=== PATIENT | female | born 1990 | race Caucasian/White ===

== ENCOUNTER 2017-02-10 18:32 | Emergency (ER) | payer MEDICAID, OTHER ==
[~2017-02-10] VITALS: Ht 157.5 cm; Wt 68.5 kg
[2017-02-10 18:35] VITALS: Ht 157.5 cm; Wt 68.5 kg
[2017-02-10] MEDS ORDERED: ONDANSETRON 4 MG INJ IV STA (18:51)
[2017-02-10] MEDS ORDERED: morphine 4 MG/ML VIAL IV STA (18:51)
[2017-02-10] MEDS ORDERED: SOD CHLORIDE 0.9% 1,000 ML IV ONE (19:00)
--- NOTE | 2017-02-10 19:07 | ERD ---
ER Documentation Chief Complaint Date/Time DATE: 02/10/17 TIME: 19:03 Chief Complaint MID ABDOMINAL PAIN, ON HER PERIOD, FEVERS, CHILLS HPI 26-year-old female sent to emergency department for complaints of left lower quadrant abdominal pain, left lower pelvic pain started today. Patient describes the pain as sharp pain, 8/10 scale, is worse upon touching the area. Patient started her menstruation today. Patient denies being . Patient' s last menstruation 01/11/2017. She denies any nausea vomiting fever or chills. Patient denies hematuria or dysuria. ROS All systems reviewed and are negative except as per history of present illness. Medications Home Meds Active Scripts Ibuprofen* (Motrin*) 600 Mg Tab, 600 MG PO Q6H Y for PAIN AND OR ELEVATED TEMP, #30 TAB Prov:KOLE JOHNSON NP 02/10/17 Ciprofloxacin Hcl* (Ciprofloxacin Hcl*) 500 Mg Tablet, 500 MG PO BID for 10 Days , TAB Prov:KOLE JOHNSON NP 02/10/17 Hydrocodone/Acetaminophen ([place] 5-325 Tablet) 1 Each Tablet, 1 TAB PO Q6H Y for SEVERE PAIN LEVEL 7-10, #20 TAB Prov:KOLE JOHNSON NP 02/10/17 Phenazopyridine Hcl* (Pyridium*) 200 Mg Tab, 200 MG PO TID Y for URINARY PAIN, # 6 TAB Prov:KOLE JOHNSON NP 02/10/17 Reported Medications [none] Unknown Strength No Conflict Check 02/10/17 Allergies Allergies: Coded Allergies: No Known Allergy (Unverified , 02/10/17) PMhx/Soc Medical and Surgical Hx: pt denies Medical Hx, pt denies Surgical Hx History of Surgery: No Anesthesia Reaction: No Hx Neurological Disorder: No Hx Respiratory Disorders: No Hx Cardiac Disorders: No Hx Psychiatric Problems: No Hx Miscellaneous Medical Probl: No Hx Alcohol Use: No Hx Substance Use: No Smoking Status: Never smoker FmHx Family History: No coronary disease, No diabetes, No other Physical Exam Vitals Vital Signs Date Time Temp Pulse Resp B/P Pulse Ox O2 Delivery O2 Flow Rate FiO2 02/10/17 18:35 98.2 90 18 136/74 100 Physical Exam GENERAL: The patient is well developed and appropriate for usual state of health, in no apparent distress. CHEST: Clear to auscultation bilaterally. There are no rales, wheezes or rhonchi. HEART: Regular rate and rhythm. No murmurs, clicks, rubs or gallops. No S3 or S4. ABDOMEN: Soft, nontender and nondistended. Good bowel sounds. No rebound or guarding. No gross peritonitis. No gross organomegaly or masses. No Masterson sign or McBurney point tenderness. BACK: No midline or flank tenderness. EXTREMITIES: Equal pulses bilaterally. There is no peripheral clubbing, cyanosis or edema. No focal swelling or erythema. Full range of motion. Grossly neurovascularly intact. NEURO: Alert and oriented. Cranial nerves 2-12 intact. Motor strength in all 4 extremities with 5/5 strength. Sensation grossly intact. Normal speech and gait. SKIN: There is no apparent rash or petechia. The skin is warm and dry. HEMATOLOGIC AND LYMPHATIC: There is no evidence of excessive bruising or lymphedema. No gross cervical, axillary, or inguinal lymphadenopathy. Result Diagram: 02/10/17189902/10/171899 Results 24 hrs Laboratory Tests Test 02/10/17 18:55 02/10/17 19:00 Urine Color YELLOW Urine Clarity CLOUDY Urine pH 9.0 Urine Specific [place] 1.026 Urine Ketones 2+mg/dL Urine Nitrite NEGATIVEmg/dL Urine Bilirubin NEGATIVEmg/dL Urine Urobilinogen NEGATIVEmg/dL Urine Leukocyte Esterase 1+Adrian/ul Urine Microscopic RBC > 182/HPF Urine Microscopic WBC 16/HPF Urine Squamous Epithelial Cells FEW/HPF Urine Amorphous Crystals FEW/HPF Urine Mucus FEW/HPF Urine Hemoglobin 2+mg/dL Urine Glucose NEGATIVEmg/dL Urine Total Protein 2+mg/dl White Blood Count 15.010^3/ul Red Blood Count 4.9110^6/ul Hemoglobin 14.4g/dl Hematocrit 42.0% Mean Corpuscular Volume 85.5fl Mean Corpuscular Hemoglobin 29.3pg Mean Corpuscular Hemoglobin Concent 34.3g/dl Red Cell Distribution Width 12.9% Platelet Count 76405^3/UL Mean Platelet Volume 9.7fl Neutrophils % 89.3% Lymphocytes % 6.0% Monocytes % 4.0% Eosinophils % 0.1% Basophils % 0.2% Nucleated Red Blood Cells % 0.0/100WBC Neutrophils # 13.410^3/ul Lymphocytes # 0.910^3/ul Monocytes # 0.610^3/ul Eosinophils # 0.010^3/ul Basophils # 0.010^3/ul Nucleated Red Blood Cells # 0.010^3/ul Sodium Level 143mmol/L Potassium Level 3.2mmol/L Chloride Level 102mmol/L Carbon Dioxide Level 22mmol/L Anion Gap 22 Blood Urea Nitrogen 15mg/dl Creatinine 0.59mg/dl Glucose Level 106mg/dl Calcium Level 10.4mg/dl Total Bilirubin 0.6mg/dl Direct Bilirubin 0.00mg/dl Indirect Bilirubin 0.6mg/dl Aspartate Amino Transf (AST/SGOT) 25IU/L Alanine Aminotransferase (ALT/SGPT) 33IU/L Alkaline Phosphatase 92IU/L Total Protein 8.4g/dl Albumin 5.1g/dl Globulin 3.30g/dl Albumin/Globulin Ratio 1.54 Lipase 84U/L Current Medications Medications (Trade) Dose Ordered Sig/Barbara Route PRN Reason Start Time Stop Time Status Last Admin Dose Admin Morphine Sulfate (morphine) 4 mg ONCE STAT IV 02/10/17 18:51 02/10/17 18:52 DC 02/10/17 19:11 Ondansetron HCl 4 mg 4 mg ONCE STAT IV 02/10/17 18:51 02/10/17 18:52 DC 02/10/17 19:11 Sodium Chloride (NS) 1,000 ml @ 1,000 mls/hr Q1H ONCE IV 02/10/17 19:00 02/10/17 19:59 DC 02/10/17 19:11 IV Flush 10 ml 10 ml STK-MED ONCE .ROUTE 02/10/17 20:14 02/10/17 20:15 DC 02/10/17 20:33 Sodium Chloride (NS) 100 ml @ ud STK-MED ONCE .ROUTE 02/10/17 20:14 02/10/17 20:15 DC 02/10/17 20:34 Iohexol 150 ml 150 ml STK-MED ONCE .ROUTE 02/10/17 20:14 02/10/17 20:15 DC 02/10/17 20:34 Ceftriaxone Sodium (Rocephin) 50 ml @ 100 mls/hr ONCE ONCE IVPB 02/10/17 21:30 02/10/17 21:59 UNV Patient was given medication for pain here in emergency department, after treatment, patient verbalized feeling much better. Patient's pain is improved.Patient was given Zofran here in the emergency department. After treatment, patient was able to tolerate po fluids here in the emergency department without any vomiting. There is no signs and symptoms of dehydration. Normal saline IV bolus was given here in emergency department for rehydration, patient tolerated IV fluids. Rocephin given here in emergency department. Tolerated medication well. PROCEDURE: Pelvic ultrasound. CLINICAL INDICATION: Pelvic pain TECHNIQUE: Cowart scale, color doppler, spectral doppler ultrasound of the pelvis was performed with transabdominal transducers. COMPARISON: No prior studies are available for comparison. FINDINGS: Uterus: Position: Anteverted. Normal myometrial echogenicity. Normal appearance of the endometrium. Ovaries: Normal sized ovaries with preserved blood flow. No adnexal masses. Free fluid: None. Measurements: Endometrium: 0.7 cm Uterus: 6.9 x 4.0 x 5.3 cm Right ovary: 3.0 x 2.6 x 2.6 cm Left ovary: 2.2 x 1.4 x 2.2 cm IMPRESSION: Normal examination. RPTAT: AADD .Jt Bueno MD, MD Date Time Electronically viewed and signed by .Jt Bueno MD, MD on 02/10/2017 20:16 .B/ CC: KOLE JOHNSON NP PROCEDURE: CT Abdomen and Pelvis with contrast. CLINICAL INDICATION: Abdominal pain. TECHNIQUE: CT scan of the abdomen and pelvis with contrast was performed on a multi-detector high-resolution CT scanner. The patient was scanned following the uncomplicated intravenous administration of 100 cc of Omnipaque 300. Coronal and sagittal reformatted images were obtained from the axial source images. Images were reviewed on a high-resolution PACS workstation. The total exam CTDI equals 7.6 mGy and the total exam DLP equals 410.17 mGy-cm. One or more of the following dose reduction techniques were used: Automated exposure control. Adjustment of the mA and/or kV according to patient size. Use of iterative reconstruction technique. COMPARISON: None. FINDINGS: CT abdomen: The lung bases are clear. The heart size is normal, without pericardial thickening or effusion. The liver is normal in size and density without focal mass or intrahepatic biliary dilatation. The spleen is normal in size and homogeneous in density. The stomach is partially collapsed, but is grossly unremarkable. The pancreas as visualized is normal. The gallbladder is unremarkable. There is no evidence for biliary dilatation. The adrenal glands are symmetric and normal. The kidneys are symmetrically unremarkable as well. No renal calculus or obstructive uropathy or mass lesion is seen. The aorta is of normal caliber. There is no retroperitoneal lymphadenopathy. The rissa hepatis region is clear. The bowel and mesentery, as visualized, are equally unremarkable. CT pelvis: The small bowel loops situated within the pelvis are unremarkable. The pelvic organs are normal. The pelvic sidewalls and inguinal regions are clear. The sigmoid colon and rectum are unremarkable. No mass, lymphadenopathy, or free fluid is seen. No acute inflammation is seen. The bladder is normal. The surrounding osseous structures are unremarkable. No osteolytic or osteoblastic lesion is detected. IMPRESSION: 1. No mass, lymphadenopathy, or focal acute inflammatory process is identified. 2. The appendix is not definitively visualized; however no pericecal inflammatory changes are seen to suggest appendicitis. RPTAT: HHO .Zhao Anna MD, MD Date Time Electronically viewed and signed by .Zhao Anna MD, on 02/10/2017 20:52 .O/ CC: KOLE JOHNSON NP Procedures/MDM Medical Decision Making: Patient symptoms is likely consistent with urinary tract infection, possible early pyelonephritis. No diverticulitis, no symptoms of ovarian torsion. No appendicitis noted. There is low suspicion for abdominal emergencies at this time. Patients abdominal exam is normal at this time. Patients radiology exam does not show any abdominal emergencies at this time. There is low suspicion for appendicitis, cholecystitis, abdominal aortic aneurysms or peritonitis at this time. There is low suspicion for sepsis. Patient appears well and is hemodynamically stable. Disposition: Home. Condition: Stable Prescription ciprofloxacin, Pyridium, [place], ibuprofen Instructions: Patient is advised to take medications as prescribed. Patient is advised to rest, increase fluid intake and do brat diet for next 1-2 days and progress as tolerated, do good perineal hygiene. Patient is advised that if symptoms are worse, severe abdominal pain, uncontrolled vomiting, high fever, severe flank pain, worst signs and symptoms, to return to the emergency department immediately. Otherwise, patient can follow up with primary care doctor in 5-7 days. Departure Diagnosis: Primary Impression: UTI (urinary tract infection) Urinary tract infection type: acute cystitis Hematuria presence: without hematuria Qualified Code: N30.00 - Acute cystitis without hematuria Condition: Stable Patient Instructions: Understanding Urinary Tract Infections (UTIs) Additional Instructions: Patient is advised to take medications as prescribed. Patient is advised to rest, increase fluid intake and do brat diet for next 1-2 days and progress as tolerated, do good perineal hygiene. Patient is advised that if symptoms are worse, severe abdominal pain, uncontrolled vomiting, high fever, severe flank pain, worst signs and symptoms, to return to the emergency department immediately. Otherwise, patient can follow up with primary care doctor in 5-7 days. KOLE JOHNSON NP Feb 10, 2017 19:06
[2017-02-10 19:26] LABS: BASOPHILS % 0.2 % (0.0-2.0); EOSINOPHILS % 0.1 % (0.0-7.0); HEMOGLOBIN 14.4 g/dl (12.0-16.0); LYMPHOCYTES # 0.9 10^3/ul (0.8-2.9); MEAN CORPUSCULAR HEMOGLOBIN 29.3 pg (29.0-33.0); MEAN CORPUSCULAR HGB CONC 34.3 g/dl (32.0-37.0); MEAN CORPUSCULAR VOLUME 85.5 fl (82.0-101.0); MEAN PLATELET VOLUME 9.7 fl (7.4-10.4); MONOCYTE # 0.6 10^3/ul (0.3-0.9); NEUTROPHIL # 13.4 10^3/ul (1.6-7.5); NEUTROPHILS % 89.3 % (39.0-77.0); PLATELET COUNT 355 10^3/UL (140-415); RED BLOOD COUNT 4.91 10^6/ul (4.20-5.40); RED CELL DISTRIBUTION WIDTH 12.9 % (11.5-14.5)
[2017-02-10 19:27] LABS: ADD SCAN DIFF NO
[2017-02-10 19:53] LABS: ALBUMIN 5.1 g/dl (3.3-4.9); ALBUMIN/GLOBULIN RATIO 1.54; BILIRUBIN,INDIRECT 0.6 mg/dl (0-1.1); BILIRUBIN,TOTAL 0.6 mg/dl (0.2-1.3); CALCIUM 10.4 mg/dl (8.4-10.2); CREATININE 0.59 mg/dl (0.44-1.00); POTASSIUM 3.2 mmol/L (3.5-5.1); TOTAL PROTEIN 8.4 g/dl (6.1-8.1)
[2017-02-10] MEDS ORDERED: IOHEXOL 300MG/ML 150 ML BTL ONE (20:14)
[2017-02-10] MEDS ORDERED: SOD CHLORIDE 0.9% 100 ML ONE (20:14)
--- NOTE | 2017-02-10 20:17 | RADRPT ---
PROCEDURE: Pelvic ultrasound. CLINICAL INDICATION: Pelvic pain TECHNIQUE: Cowart scale, color doppler, spectral doppler ultrasound of the pelvis was performed with transabdominal transducers. COMPARISON: No prior studies are available for comparison. FINDINGS: Uterus: Position: Anteverted. Normal myometrial echogenicity. Normal appearance of the endometrium. Ovaries: Normal sized ovaries with preserved blood flow. No adnexal masses. Free fluid: None. Measurements: Endometrium: 0.7 cm Uterus: 6.9 x 4.0 x 5.3 cm Right ovary: 3.0 x 2.6 x 2.6 cm Left ovary: 2.2 x 1.4 x 2.2 cm IMPRESSION: Normal examination. RPTAT: AADD .Jt Bueno MD, MD Date Time Electronically viewed and signed by .Jt Bueno MD, on 02/10/2017 20:16 .B/
[2017-02-10 20:32] LABS: ADD UMIC YES; UR AMORPHOUS CRYSTAL FEW /HPF (NONE SEEN); UR ASCORBIC ACID NEGATIVE (NEGATIVE); UR BILIRUBIN (Dip) NEGATIVE (NEGATIVE); UR BLOOD (Dip) 2+ mg/dL (NEGATIVE); UR CLARITY CLOUDY (CLEAR); UR COLOR YELLOW (YELLOW); UR GLUCOSE (Dip) NEGATIVE (NEGATIVE); UR KETONES (Dip) 2+ mg/dL (NEGATIVE); UR LEUKOCYTE ESTERASE (Dip) 1+ Leu/ul (NEGATIVE); UR MUCUS FEW /HPF (NONE SEEN); UR NITRITE (Dip) NEGATIVE (NEGATIVE); UR RBC > 182 /HPF (0-5); UR SPECIFIC GRAVITY (Dip) 1.026 (1.003-1.030); UR SQUAMOUS EPITHELIAL CELL FEW /HPF (FEW); UR TOTAL PROTEIN (Dip) 2+ mg/dl (NEGATIVE); UR UROBILINOGEN (Dip) NEGATIVE (NEGATIVE)
--- NOTE | 2017-02-10 20:53 | RADRPT ---
PROCEDURE: CT Abdomen and Pelvis with contrast. CLINICAL INDICATION: Abdominal pain. TECHNIQUE: CT scan of the abdomen and pelvis with contrast was performed on a multi-detector high- resolution CT scanner. The patient was scanned following the uncomplicated intravenous administrati on of 100 cc of Omnipaque 300. Coronal and sagittal reformatted images were obtained from the axial source images. Images were reviewed on a high-resolution PACS workstation. The total exam CTDI equa ls 7.6 mGy and the total exam DLP equals 410.17 mGy-cm. One or more of the following dose reduction techniques were used: Automated exposure control. Adjustment of the mA and/or kV according to patient size. Use of iterative reconstruction technique. COMPARISON: None. FINDINGS: CT abdomen: The lung bases are clear. The heart size is normal, without pericardial thickening or effusion. Th e liver is normal in size and density without focal mass or intrahepatic biliary dilatation. The sp dodie is normal in size and homogeneous in density. The stomach is partially collapsed, but is gross ly unremarkable. The pancreas as visualized is normal. The gallbladder is unremarkable. There is no evidence for biliary dilatation. The adrenal glands are symmetric and normal. The kidneys are s ymmetrically unremarkable as well. No renal calculus or obstructive uropathy or mass lesion is seen . The aorta is of normal caliber. There is no retroperitoneal lymphadenopathy. The rissa hepatis reg ion is clear. The bowel and mesentery, as visualized, are equally unremarkable. CT pelvis: The small bowel loops situated within the pelvis are unremarkable. The pelvic organs are normal. T he pelvic sidewalls and inguinal regions are clear. The sigmoid colon and rectum are unremarkable. No mass, lymphadenopathy, or free fluid is seen. No acute inflammation is seen. The bladder is no rmal. The surrounding osseous structures are unremarkable. No osteolytic or osteoblastic lesion is detected. IMPRESSION: 1. No mass, lymphadenopathy, or focal acute inflammatory process is identified. 2. The appendix is not definitively visualized; however no pericecal inflammatory changes are seen t o suggest appendicitis. RPTAT: HHO .Zhao Anna MD, MD Date Time Electronically viewed and signed by .Zhao Anna MD, on 02/10/2017 20:52 .O/
[2017-02-10] MEDS ORDERED: CIPR500T4 PO (21:05)
[2017-02-10] MEDS ORDERED: IBUP-1542 PO (21:05)
[2017-02-10] MEDS ORDERED: HYDR-906 PO (21:05)
[2017-02-10] MEDS ORDERED: PHEN-538 PO (21:05)
[2017-02-10] MEDS ORDERED: CEFTRIAXONE 1 GM/50 ML (PMX) 50 ML IVPB ONE (21:30)
[2017-02-10 22:31] VITALS: BP 132/72; PULSE 89; RESP 16; TEMP 98.6
== END 2017-02-10 22:32 | disposition home or self-care (01) ==
LOC: FTE 18:32
DX: N30.00 Acute cystitis without hematuria (principal); R10.2 Pelvic and perineal pain
CPT/HCPCS: 74177; 76856; 80053; 81001; 83690; 85025; 87086; J0696; J2270; J2405; J7030; Q9967; Z7610; 36415; 96374; 96375

== ENCOUNTER 2017-04-07 13:13 | Emergency (ER) | payer MEDICAID ==
[~2017-04-07] VITALS: Wt 70.0 kg
[~2017-04-07 13:13] MED LIST: CIPR500T4 PO; HYDR-906 PO; IBUP-1542 PO; PHEN-538 PO
[2017-04-07] MEDS ORDERED: IBUP400T22 PO (14:09)
[2017-04-07] MEDS ORDERED: HYDR-906 PO (14:09)
[2017-04-07] MEDS ORDERED: SOD CHLORIDE 0.9% 1,000 ML IV STA (14:12)
[2017-04-07] MEDS ORDERED: ONDANSETRON 4 MG INJ IV STA (14:12)
[2017-04-07] MEDS ORDERED: KETOROLAC 30 MG INJ IV STA (14:12)
[2017-04-07 15:21] LABS: ADD UMIC YES; UR AMORPHOUS CRYSTAL FEW /HPF (NONE SEEN); UR ASCORBIC ACID NEGATIVE (NEGATIVE); UR BILIRUBIN (Dip) NEGATIVE (NEGATIVE); UR BLOOD (Dip) 3+ mg/dL (NEGATIVE); UR CLARITY CLOUDY (CLEAR); UR COLOR YELLOW (YELLOW); UR GLUCOSE (Dip) NEGATIVE (NEGATIVE); UR KETONES (Dip) 1+ mg/dL (NEGATIVE); UR LEUKOCYTE ESTERASE (Dip) NEGATIVE Leu/ul (NEGATIVE); UR MUCUS FEW /HPF (NONE SEEN); UR NITRITE (Dip) NEGATIVE (NEGATIVE); UR RBC > 182 /HPF (0-5); UR SQUAMOUS EPITHELIAL CELL FEW /HPF (FEW); UR TOTAL PROTEIN (Dip) 1+ mg/dl (NEGATIVE); UR UROBILINOGEN (Dip) NEGATIVE (NEGATIVE)
--- NOTE | 2017-04-07 15:23 | ERD ---
ER Documentation Chief Complaint Date/Time DATE: 04/07/17 TIME: 15:21 Chief Complaint ABD PAIN, ONSET THIS AM, PT ON MENSTRUAL PERIOD HPI Patient is a 26 year old female, ge[place]ian speaking here with friend who presents to the ED with pelvic pain on and off x 1 year. She states that every time she gets her period, she develops cramps, pelvic pain and bleeding. She states she had similar symptoms the last 2 periods. She has not gone to a operating room surgical technician. Denies abdominal pain. States that she feels nausea and had an episode of non bloody non bilious vomiting. Denies headache or dizziness. States that this is exactly what she experienced in the past. Denies sexual intercourse. Denies use of OCP. Denies chest pain, cough or shortness of breath. Denies STD. ROS All systems reviewed and are negative except as per history of present illness. Medications Home Meds Active Scripts Naproxen* (Naprosyn*) 500 Mg Tablet, 500 MG PO BID Y for PAIN AND/OR INFLAMMATION, #30 TAB Prov:SILVANA NG PA-C 04/07/17 Ibuprofen* (Motrin*) 600 Mg Tab, 600 MG PO Q6H Y for PAIN AND OR ELEVATED TEMP, #30 TAB Prov:KOLE JOHNSON NP 02/10/17 Ciprofloxacin Hcl* (Ciprofloxacin Hcl*) 500 Mg Tablet, 500 MG PO BID for 10 Days , TAB Prov:KOLE JOHNSON NP 02/10/17 Hydrocodone/Acetaminophen ([place] 5-325 Tablet) 1 Each Tablet, 1 TAB PO Q6H Y for SEVERE PAIN LEVEL 7-10, #20 TAB Prov:KOLE JOHNSON NP 02/10/17 Phenazopyridine Hcl* (Pyridium*) 200 Mg Tab, 200 MG PO TID Y for URINARY PAIN, # 6 TAB Prov:KOLE JOHNSON NP 02/10/17 Reported Medications [none] Unknown Strength No Conflict Check 02/10/17 Discontinued Scripts Hydrocodone/Acetaminophen ([place] 5-325 Tablet) 1 Each Tablet, 1 TAB PO Q6H Y for PAIN, #7 TAB Prov:SILVANA NG PA-C 04/07/17 Ibuprofen* (Motrin*) 400 Mg Tab, 400 MG PO Q6, #30 TAB Prov:SILVANA GN AISHWARYA 04/07/17 Allergies Allergies: Coded Allergies: No Known Allergy (Unverified , 02/10/17) PMhx/Soc History of Surgery: No Anesthesia Reaction: No Hx Neurological Disorder: No Hx Respiratory Disorders: No Hx Cardiac Disorders: No Hx Psychiatric Problems: No Hx Miscellaneous Medical Probl: No Hx Alcohol Use: No Hx Substance Use: No Hx Tobacco Use: No Smoking Status: Never smoker FmHx Family History: No coronary disease, No diabetes, No other Physical Exam Vitals Vital Signs Date Time Temp Pulse Resp B/P Pulse Ox O2 Delivery O2 Flow Rate FiO2 04/07/17 13:17 98.3 93 17 139/65 99 Physical Exam GENERAL: Well-developed, well-nourished female. Appears in no acute distress. HEAD: Normocephalic, atraumatic. EYES: Pupils are equally reactive bilaterally. EOMs grossly intact. No conjunctival erythema. ENT: Moist mucous membranes. No uvula deviation. No kissing tonsils. No exudates. NECK: Supple. No lymphadenopathy or thyromegaly. No meningismus. negative kernig. negative brudinski. LUNG: Clear to auscultation bilaterally. No rhonchi, wheezing, rales or coarse breath sounds. HEART: Regular rate and rhythm. No murmurs, rubs or gallops. ABDOMEN: No scars, ecchymosis or rashes noted. Soft, nontender, and nondistended. Positive bowel sounds in all four quadrants. No rebound tenderness , no guarding. (-) McBurneys point tenderness. No CVA tenderness. PELVIC PAIN: bilateral pelvic pain and suprapubic tenderness BACK: No midline tenderness. Extremities: Equal pulses bilaterally. No peripheral clubbing, cyanosis or edema. No unilateral leg swelling. NEUROLOGIC: Alert and oriented. Moving all four extremities. 5/5 strength in all extremities. Normal speech. Steady gait. SKIN: Normal color. Warm and dry. No rashes or lesions. Capillary refill < 2 seconds Result Diagram: 04/07/17 1515 04/07/17 1515 Results 24 hrs Laboratory Tests Test 04/07/17 14:45 04/07/17 15:15 Urine Color YELLOW Urine Clarity CLOUDY Urine pH 8.0 Urine Specific [place] 1.020 Urine Ketones 1+mg/dL Urine Nitrite NEGATIVEmg/dL Urine Bilirubin NEGATIVEmg/dL Urine Urobilinogen NEGATIVEmg/dL Urine Leukocyte Esterase NEGATIVELeu/ul Urine Microscopic RBC > 182/HPF Urine Microscopic WBC 0/HPF Urine Squamous Epithelial Cells FEW/HPF Urine Amorphous Crystals FEW/HPF Urine Mucus FEW/HPF Urine Hemoglobin 3+mg/dL Urine Glucose NEGATIVEmg/dL Urine Total Protein 1+mg/dl White Blood Count 10.310^3/ul Red Blood Count 4.8310^6/ul Hemoglobin 14.2g/dl Hematocrit 41.4% Mean Corpuscular Volume 85.7fl Mean Corpuscular Hemoglobin 29.4pg Mean Corpuscular Hemoglobin Concent 34.3g/dl Red Cell Distribution Width 12.8% Platelet Count 60563^3/UL Mean Platelet Volume 9.4fl Neutrophils % 84.1% Lymphocytes % 10.9% Monocytes % 4.4% Eosinophils % 0.1% Basophils % 0.2% Nucleated Red Blood Cells % 0.0/100WBC Neutrophils # (Manual) 8.710^3/ul Lymphocytes # 1.110^3/ul Monocytes # 0.510^3/ul Eosinophils # 0.010^3/ul Basophils # 0.010^3/ul Nucleated Red Blood Cells # 0.010^3/ul Sodium Level 140mmol/L Potassium Level 3.4mmol/L Chloride Level 102mmol/L Carbon Dioxide Level 25mmol/L Anion Gap 16 Blood Urea Nitrogen 15mg/dl Creatinine 0.58mg/dl Glucose Level 136mg/dl Calcium Level 9.5mg/dl Current Medications Medications (Trade) Dose Ordered Sig/Barbara Route PRN Reason Start Time Stop Time Status Last Admin Dose Admin Sodium Chloride (NS) 1,000 ml @ 1,000 mls/hr Q1H STAT IV 04/07/17 14:12 04/07/17 15:11 DC 04/07/17 15:14 Ondansetron HCl (Zofran Inj) 4 mg ONCE STAT IV 04/07/17 14:12 04/07/17 14:16 DC 04/07/17 15:15 Ketorolac Tromethamine (Toradol) 30 mg ONCE STAT IV 04/07/17 14:12 04/07/17 14:16 DC 04/07/17 15:15 Procedures/MDM ER COURSE: I kept the patient and/or family informed of laboratory and diagnostic imaging results throughout the emergency room course. PROCEDURES: toradol, Zofran. Tolerated well with no adverse reaction. LAB INTERPRETATION: CBC showed no evidence of systemic infection or severe anemia. CMP showed no evidence of electrolyte abnormalities, severe acidosis, alkalosis, renal failure , or liver disease. Lipase showed no evidence of acute pancreatitis. UA showed no evidence of leukocytes, nitrites or hematuria. Urine test was negative. MEDICAL DECISION MAKING: This is a 26-year-old female who presents with pelvic pain. Vital signs were reviewed. Patient is afebrile. Patient is not hypoxic. Patient is not toxic or ill-appearing. Low suspicion for ovarian torsion, PID, tuboovarian abscess, ectopic , bowel obstruction, pyelonephritis, UTI, appendicitis, cervicitis, septic , molar , HELLP syndrome, preeclampsia, eclampsia, placenta previa, placenta abruptia. Patient had a CT scan done 1 month ago which was unremarkable. I do not think a CT scan is necessary at this time as patient does not have abdominal pain. I reexamined patient after administration of medication and she had improvement in symptoms. Is ready to be discharged. Low suspicion for ACS, AAA, perforated ulcer, bowel obstruction , cholecystitis, choledocholithiasis, cholangitis, pancreatitis, hepatic abscess , appendicitis, diverticulitis, gastroenteritis, hepatitis, peptic ulcer disease , HELLP syndrome. DISCHARGE: At this time, patient is stable for discharge and outpatient management with no new complaints during the ER course. Patient was sent home with [facility] and a copy of all imaging and laboratory studies and to follow-up with operating room surgical technician. Patient will be discharged home with instructions to recheck for new or worsening symptoms such as fever, nausea, weakness, LOC and to follow up with primary care in the next 1-2 days. Patient was advised to return to the ER for any new or worsening symptoms. Plan was discussed and patient and/or family understands and agrees. Home instructions were given. Departure Diagnosis: Primary Impression: Pelvic pain Condition: Stable SILVANA NG PA-C Apr 07, 2017 15:23
--- NOTE | 2017-04-07 15:36 | RADRPT ---
PROCEDURE: US Pelvis CLINICAL INDICATION: Pelvic pain. TECHNIQUE: Transabdominal sonographic evaluation of the pelvis was performed. COMPARISON: None. FINDINGS: Myometrium is homogeneous in echotexture without fibroids. Endometrium is thickened without a focal abnormality. Normal flow to both ovaries. No adnexal mass. No free pelvic fluid. MEASUREMENTS: Uterus: 7.1 x 4.1 x 4.8 cm, anteverted. Endometrium: 1.4 cm. Right ovary size: 2.7 x 1.9 x 1.8 cm Left ovary size: 2.8 x 2.0 x 2.0 cm IMPRESSION: 1. Nonspecific thickening of the endometrium, which may reflect secretory phase of menstrual cycle. 2. Otherwise, unremarkable examination. RPTAT: EE .Ari Morris MD, Date Time Electronically viewed and signed by .Ari Morris MD, on 04/07/2017 15:41 .C/
[2017-04-07 15:44] LABS: BASOPHILS % 0.2 % (0.0-2.0); EOSINOPHILS % 0.1 % (0.0-7.0); HEMATOCRIT 41.4 % (37.0-47.0); HEMOGLOBIN 14.2 g/dl (12.0-16.0); LYMPHOCYTES # 1.1 10^3/ul (0.8-2.9); LYMPHOCYTES % 10.9 % (15.0-51.0); MEAN CORPUSCULAR HEMOGLOBIN 29.4 pg (29.0-33.0); MEAN CORPUSCULAR HGB CONC 34.3 g/dl (32.0-37.0); MEAN CORPUSCULAR VOLUME 85.7 fl (82.0-101.0); MEAN PLATELET VOLUME 9.4 fl (7.4-10.4); MONOCYTE # 0.5 10^3/ul (0.3-0.9); MONOCYTES % 4.4 % (0.0-11.0); NEUTROPHILS % 84.1 % (39.0-77.0); PLATELET COUNT 306 10^3/UL (140-415); RED BLOOD COUNT 4.83 10^6/ul (4.20-5.40); RED CELL DISTRIBUTION WIDTH 12.8 % (11.5-14.5); WHITE BLOOD COUNT 10.3 10^3/ul (4.8-10.8)
[2017-04-07 16:04] LABS: CALCIUM 9.5 mg/dl (8.4-10.2); CREATININE 0.58 mg/dl (0.44-1.00); POTASSIUM 3.4 mmol/L (3.5-5.1)
[2017-04-07] MEDS ORDERED: NAPR-260 PO (16:20)
[2017-04-07 16:31] VITALS: BP 128/71; PULSE 79; RESP 20; TEMP 98
== END 2017-04-07 16:57 | disposition home or self-care (01) ==
LOC: FTE 13:13
DX: R10.2 Pelvic and perineal pain (principal); R11.2 Nausea with vomiting, unspecified
CPT/HCPCS: 36415; 76856; 80048; 81001; 85025; 96361; 96374; 96375; J1885; J2405; J7030; Z7502

== ENCOUNTER 2017-06-20 01:45 | Emergency (ER) | payer SELFPAY ==
[~2017-06-20] VITALS: Ht 160 cm; Wt 72.2 kg
[~2017-06-20 01:45] MED LIST changes: +NAPR-260 PO
[2017-06-20 01:48] VITALS: Ht 160 cm; Wt 72.2 kg
[2017-06-20] MEDS ORDERED: SOD CHLORIDE 0.9% 1,000 ML IV STA (02:18)
[2017-06-20] MEDS ORDERED: KETOROLAC 30 MG INJ IV STA (02:18)
[2017-06-20] MEDS ORDERED: PHENAZOPYRIDINE 100 MG TAB PO ONE (02:30)
[2017-06-20] MEDS ORDERED: CEFTRIAXONE 1 GM/50 ML (PMX) 50 ML IVPB ONE (02:30)
--- NOTE | 2017-06-20 03:46 | ERD ---
ER Documentation Chief Complaint Chief Complaint Right flank pain, Dysuria, Hematuria HPI The patient is a 27-year-old female who presents to the Emergency Department with complaint of dysuria, hematuria and flank pain. The patient reports that her symptoms initially began one week ago, with onset of a burning pain upon urination, urinary frequency and urgency. For the past 3 days, she has developed hematuria as well. The patient's symptoms persisted, until two days ago, at which time she also developed [id number], constant, right-sided flank pain. She denies any fevers, sweats, chills, nausea, vomiting, abdominal pain, chest pain, palpitations, shortness of breath, diarrhea, black or bloody stools, vaginal bleeding or new vaginal discharge. No other complaints at this time. ROS All systems reviewed and are negative except as per history of present illness. Medications Home Meds Active Scripts Phenazopyridine Hcl* (Pyridium*) 200 Mg Tab, 200 MG PO TID Y for URINARY PAIN for 2 Days, #6 TAB Prov:ELIUD ZURITA PA-C 06/20/17 Ibuprofen* (Motrin*) 600 Mg Tab, 600 MG PO Q6, #30 TAB Prov:ELIUD ZURITA PA-C 06/20/17 Ciprofloxacin Hcl* (Ciprofloxacin Hcl*) 500 Mg Tablet, 500 MG PO BID for 10 Days , TAB Prov:ELIUD ZURITA PA-C 06/20/17 Naproxen* (Naprosyn*) 500 Mg Tablet, 500 MG PO BID Y for PAIN AND/OR INFLAMMATION, #30 TAB Prov:SILVANA NG PA-C 04/07/17 Ibuprofen* (Motrin*) 600 Mg Tab, 600 MG PO Q6H Y for PAIN AND OR ELEVATED TEMP, #30 TAB Prov:KOLE JOHNSON NP 02/10/17 Ciprofloxacin Hcl* (Ciprofloxacin Hcl*) 500 Mg Tablet, 500 MG PO BID for 10 Days , TAB Prov:KOLE JOHNSON NP 02/10/17 Hydrocodone/Acetaminophen ([place] 5-325 Tablet) 1 Each Tablet, 1 TAB PO Q6H Y for SEVERE PAIN LEVEL 7-10, #20 TAB Prov:KOLE JOHNSON NP 02/10/17 Phenazopyridine Hcl* (Pyridium*) 200 Mg Tab, 200 MG PO TID Y for URINARY PAIN, # 6 TAB Prov:KOLE JOHNSON SUSANA 02/10/17 Reported Medications [none] Unknown Strength No Conflict Check 02/10/17 Allergies Allergies: Coded Allergies: No Known Allergy (Unverified , 02/10/17) PMhx/Soc Medical and Surgical Hx: pt denies Medical Hx, pt denies Surgical Hx History of Surgery: No Anesthesia Reaction: No Hx Neurological Disorder: No Hx Respiratory Disorders: No Hx Cardiac Disorders: No Hx Psychiatric Problems: No Hx Miscellaneous Medical Probl: No Hx Alcohol Use: No Hx Substance Use: No Hx Tobacco Use: No Smoking Status: Never smoker Physical Exam Vitals Vital Signs Date Time Temp Pulse Resp B/P Pulse Ox O2 Delivery O2 Flow Rate FiO2 06/20/17 01:48 98.1 81 20 132/73 100 Physical Exam GENERAL: Well-developed, well-nourished, in no acute distress. Non-toxic. Well- appearing. HEENT: Head is normocephalic, atraumatic. No scleral pallor or icterus. Conjunctiva pink. Moist mucous membranes. Clear oropharynx. NECK: Supple. No masses, no tenderness, no lymphadenopathy. Trachea midline. No nuchal rigidity. Full range of motion. RESPIRATORY: Lungs are clear to auscultation bilaterally. No rales, rhonchi or wheezing. Equal breath sounds. Normal expiratory effort. CARDIOVASCULAR: Regular rate and rhythm. S1 and S2 normal. No murmurs, rubs, or gallops. GASTROINTESTINAL: Abdomen is soft and nondistended. Mild tenderness to palpation over the suprapubic abdomen. No guarding, no rebound tenderness. Normal bowel sounds. No gross peritonitis. FLANK: Right-sided CVA tenderness. No left-sided CVA tenderness. No mass or swelling. BACK: No midline tenderness. No paraspinal tenderness. Spine curve normal. No deformities. EXTREMITIES: No clubbing, cyanosis, or edema. Normal skin perfusion. Moving all extremities. No focal swelling or erythema. Distal pulses are palpable, 2+ bilaterally. Capillary refill is less than 2 seconds. NEUROLOGIC: The patient is alert, awake, and oriented x 3. INTEGUMENT: Skin is clean, dry and intact. No rashes, lesions or petechiae present. Normal turgor. PSYCHIATRIC: Appropriate; Cooperative. Result Diagram: 11/9/17 0228 11/9/17 0228 Results 24 hrs Laboratory Tests Test 06/20/17 02:18 06/20/17 02:28 Urine Color YELLOW Urine Clarity TURBID Urine pH 6.0 Urine Specific [place] 1.021 Urine Ketones NEGATIVEmg/dL Urine Nitrite POSITIVEmg/dL Urine Bilirubin NEGATIVEmg/dL Urine Urobilinogen NEGATIVEmg/dL Urine Leukocyte Esterase 3+Adrian/ul Urine Microscopic RBC > 182/HPF Urine Microscopic WBC > 182/HPF Urine Squamous Epithelial Cells MODERATE/HPF Urine Bacteria MODERATE/HPF Urine Mucus FEW/HPF Urine Hemoglobin 3+mg/dL Urine Glucose NEGATIVEmg/dL Urine Total Protein 2+mg/dl White Blood Count 12.710^3/ul Red Blood Count 4.4610^6/ul Hemoglobin 13.3g/dl Hematocrit 39.5% Mean Corpuscular Volume 88.6fl Mean Corpuscular Hemoglobin 29.8pg Mean Corpuscular Hemoglobin Concent 33.7g/dl Red Cell Distribution Width 12.9% Platelet Count 52702^3/UL Mean Platelet Volume 9.8fl Neutrophils % 66.3% Lymphocytes % 24.7% Monocytes % 7.8% Eosinophils % 0.5% Basophils % 0.2% Nucleated Red Blood Cells % 0.0/100WBC Neutrophils # 8.410^3/ul Lymphocytes # 3.110^3/ul Monocytes # 1.010^3/ul Eosinophils # 0.110^3/ul Basophils # 0.010^3/ul Nucleated Red Blood Cells # 0.010^3/ul Sodium Level 143mmol/L Potassium Level 3.4mmol/L Chloride Level 106mmol/L Carbon Dioxide Level 25mmol/L Anion Gap 15 Blood Urea Nitrogen 19mg/dl Creatinine 0.69mg/dl Glucose Level 97mg/dl Calcium Level 9.4mg/dl Total Bilirubin 0.2mg/dl Direct Bilirubin 0.00mg/dl Indirect Bilirubin 0.2mg/dl Aspartate Amino Transf (AST/SGOT) 20IU/L Alanine Aminotransferase (ALT/SGPT) 33IU/L Alkaline Phosphatase 99IU/L Total Protein 7.4g/dl Albumin 4.3g/dl Globulin 3.10g/dl Albumin/Globulin Ratio 1.38 Lipase 102U/L Serum HCG, Qualitative NEGATIVE Current Medications Medications (Trade) Dose Ordered Sig/Barbara Route PRN Reason Start Time Stop Time Status Last Admin Dose Admin Sodium Chloride (NS) 1,000 ml @ 1,000 mls/hr Q1H STAT IV 06/20/17 02:18 06/20/17 03:17 DC 06/20/17 02:38 Ketorolac Tromethamine (Toradol) 30 mg ONCE STAT IV 06/20/17 02:18 06/20/17 02:19 DC 06/20/17 02:38 Phenazopyridine HCl 200 mg 200 mg ONCE ONCE PO 06/20/17 02:30 06/20/17 02:31 DC 06/20/17 02:38 Ceftriaxone Sodium (Rocephin) 50 ml @ 100 mls/hr ONCE ONCE IVPB 06/20/17 02:30 06/20/17 02:59 DC 06/20/17 02:38 Procedures/MDM Emergency Department Course: The patient was stable throughout the ER course. Laboratory work was performed. On reassessment, the patient was sitting comfortably with no signs of acute distress. Laboratory results were discussed with the patient, as well as likely diagnosis of pyelonephritis. She was given an injection of 1 g of Rocephin IV, and strict return precautions for signs of worsening condition. Medical Decision Making: This is a 27-year-old female presenting to the Emergency Department with dysuria, hematuria, urinary frequency, urgency and right-sided flank pain. On physical examination, the patient had mild tenderness to palpation over the suprapubic abdomen. She had right-sided CVA tenderness. Otherwise, she was nontoxic in appearance, with no evidence of dehydration. She was afebrile, with no tachycardia, no tachypnea, no hypotension. The differential diagnosis includes, but is not limited to, urinary tract infection, renal abscess, perinephric abscess, urethritis, nephrolithiasis, salpingitis, cervicitis, pelvic inflammatory disease, diverticulitis, cystitis, cholecystitis, appendicitis, abdominal aortic aneurysm /dissection, pyelonephritis. Urinalysis revealed positive nitrites, 3+ urine hemoglobin, 3+ urine leukocyte esterase, > 182 WBCs consistent with a urinary infection. Given that the patient presented with recent flank pain and CVA tenderness, patient's symptoms are most consistent with acute pyelonephritis. She was given an injection of 1 g of Rocephin. Urine culture sent. After rest , and administration of medications and serial evaluations, the patient reports no new complaints. She continues to remain stable and nontoxic, with no signs of distress. At this time, the patient is in stable condition, and therefore can be discharged home with a prescription for Ciprofloxacin, Pyridium, ibuprofen and strict return precautions for signs of deteriorating or worsening condition. Discussed possible adverse reactions of the prescribed medications with the patient, who consents to the new medications. The patient is advised to follow up with her primary care provider within 1-2 days for reevaluation and further management, or return to the ER sooner for any worsening symptoms. I shared all laboratory results, medical decision making and plan with the patient at length and in great detail, and the patient verbally understands and agrees with the plan for further observation and care as an outpatient. At the time of discharge, all questions were answered. Departure Diagnosis: Primary Impression: Acute pyelonephritis Condition: Stable Patient Instructions: Pyelonephritis, Pyelonephritis, Female (Adult) Additional Instructions: Llame al doctor MAANA y karen akash JESSICA PARA DENTRO DE 1-2 ELLISON.Dgale a la secretaria que nosotros le instruimos hacer esta jessica.Avise o llame si edward condicin se empeora antes de la jessica. Regresa aqui si peor o no mejor. ELIUD ZURITA PA-C Jun 20, 2017 03:46
[2017-06-20] MEDS ORDERED: AMOX1TAB10 PO (03:47)
[2017-06-20] MEDS ORDERED: CIPR500T4 PO (03:50)
[2017-06-20] MEDS ORDERED: IBUP-1542 PO (03:50)
[2017-06-20] MEDS ORDERED: PHEN-538 PO (03:51)
== END 2017-06-20 04:28 | disposition home or self-care (01) ==
LOC: FTE 01:45
DX: N10 Acute pyelonephritis (principal); R10.2 Pelvic and perineal pain
CPT/HCPCS: 36415; 80053; 81001; 83690; 84703; 85025; 87086; 96374; 96375; 99284; J0696; J1885; J7030